=== PATIENT | female | born 1990 | race American Indian/Alaskan Native ===

== ENCOUNTER 2018-10-19 19:18 | Emergency (ER) | payer SELFPAY | END 2018-10-19 19:33 | disposition left against medical advice (07) | LOC: ED 19:18 | DX: T78.40XA Allergy, unspecified, initial encounter (principal); Z53.21 Procedure and treatment not carried out due to patient leaving prior to being seen by health care provider; X58.XXXA Exposure to other specified factors, initial encounter ==

== ENCOUNTER 2022-01-27 03:21 | Emergency (ER) | payer OTHER ==
[2022-01-27 03:27] VITALS: BP 136/84
[2022-01-27 05:38] LABS: Bacteria,Urine 1+ /HPF (Negative); Mucus,Urine FEW /HPF
[2022-01-27 06:05] LABS: Color,Urine Straw (Yellow)
== END 2022-01-27 23:22 | disposition home or self-care (01) ==
LOC: ED 03:21
DX: O46.91 Antepartum hemorrhage, unspecified, first trimester (principal); Z3A.01 Less than 8 weeks gestation of pregnancy; Z53.21 Procedure and treatment not carried out due to patient leaving prior to being seen by health care provider
CPT/HCPCS: 81001